=== PATIENT | male | born 1990 | race Two or more races ===

== ENCOUNTER 2024-03-08 00:25 | Emergency (ER) | payer BC ==
[~2024-03-08] VITALS: Ht 172.7 cm; Wt 81.7 kg
[~2024-03-08 00:25] MED LIST: IBUP800 PO; ONDA4 PO; OXYM.05NI; PROM25 PO; Pepcid40 MG PO
[2024-03-08 00:56] VITALS: BP 137/92
[2024-03-08] MEDS ORDERED: CYCL10 PO (03:55)
[2024-03-08] MEDS ORDERED: Cyclobenzaprine HCl 10 MG Tab PO ONE (03:55)
== END 2024-03-08 04:20 | disposition home or self-care (01) ==
LOC: ER 00:25
DX: M54.50 Low back pain, unspecified (principal); Z87.891 Personal history of nicotine dependence
CPT/HCPCS: 99284; A9270